=== PATIENT | male | born 2000 | race African-American/Black ===

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

== ENCOUNTER 2021-06-27 04:06 | Inpatient (IN) | payer OTHER, SELFPAY ==
[2021-06-27 04:45] LABS: Hemoglobin 11.6 g/dL (14.0-18.0); Mean Corpuscular HGB CONC 34.4 g/dL (32.0-36.0); Mean Corpuscular Hemoglobin 31.2 pg (25.0-35.0); Mean Corpuscular Volume 90.7 fL (78.0-98.0); Platelet Count 337 thou/uL (130-400); RBC Distribution Width 11.6 % (11.5-14.5); White Blood Cell (WBC) Count 23.4 thou/uL (4.8-10.8)
[2021-06-27 04:54] LABS: INR-International Normal Ratio 1.2; PTT 25.6 sec (22.9-36.1); Prothrombin Time 15.3 sec (12.0-14.7)
[2021-06-27 04:55] LABS: ALT (SGPT) 18 U/L (8-55); AST (SGOT) 21 U/L (5-34); Albumin 3.4 g/dL (3.5-5.0); Alkaline Phosphatase 46 U/L (50-130); Anion Gap 11 mmol/L (10-20); BUN (Urea Nitrogen) 17 mg/dL (8.9-20.6); Bilirubin, Total 0.4 mg/dL (0.2-1.2); CK (CPK) 477 U/L (30-200); Calc. Creatinine Clearance 0 mL/min (70-130); Calcium 8.2 mg/dL (7.8-10.44); Carbon Dioxide 21 mmol/L (22-29); Chloride 109 mmol/L (98-107); Globulin 2.4 g/dL (2.4-3.5); Glucose 152 mg/dL (70-105); Potassium 3.2 mmol/L (3.5-5.1); Protein, Total 5.8 g/dL (6.0-8.3); Sodium 138 mmol/L (136-145)
[2021-06-27] MEDS ORDERED: Boostrix 0.5 ML (Tdap) VIAL ONE ×2 (04:55→05:00)
[2021-06-27 05:01] LABS: Band 1 % (5-11); Eosinophils 1 % (0-10); Hypochromia SLIGHT = 6-15 cells (100X) (0-5/hpf); Lymphocytes 15 % (28-48); MDiff Complete? YES; Monocytes 1 % (0-4); Neutrophil 82 % (31-61); Platelet Morphology Comment Appears Adequate
[2021-06-27] MEDS ORDERED: Dextrose 5% in Water 1,000 ML IV PRN (05:03)
[2021-06-27] MEDS ORDERED: Ondansetron ODT 4 MG TAB PO PRN (05:03)
[2021-06-27] MEDS ORDERED: Dextrose 50% Abboject 50 ML SYRINGE SLOW IVP PRN (05:03)
[2021-06-27] MEDS ORDERED: traMADol HCl 50 MG TAB PO PRN (05:12)
[2021-06-27] MEDS ORDERED: Protamine Sulfate 50 MG/5 ML VIAL ONE (05:25)
[2021-06-27] MEDS ORDERED: Heparin 5,000 UNITS/ML VIAL ONE (05:25)
[2021-06-27 05:28] LABS: Alcohol Less than 10 mg/dL (Less than 10)
[2021-06-27 05:30] LABS: Salicylate Less than 8.0 mg/dL (15.0-30.0)
[2021-06-27 05:31] LABS: Acetaminophen Less than 6.0 mcg/mL (10.0-30.0)
[2021-06-27] MEDS ORDERED: Fentanyl 100 MCG/2 ML VIAL ONE ×2 (05:36→09:19)
[2021-06-27] MEDS ORDERED: Midazolam HCl 2 mg/2 ml Vial ONE (05:36)
[2021-06-27] MEDS ORDERED: Dexamethasone 4 mg/ml Vial ONE (05:39)
[2021-06-27] MEDS ORDERED: EPINEPHrine 1 MG/ML AMP ONE (05:39)
[2021-06-27] MEDS ORDERED: Bupivacaine 0.25% HCL 30 ML VIAL ONE (05:39)
[2021-06-27] MEDS ORDERED: Ondansetron PF 4 MG/2 ML Vial ONE (05:50)
[2021-06-27] MEDS ORDERED: Rocuronium Bromide 10 MG/ML (10ML VIAL) ONE (05:50)
[2021-06-27] MEDS ORDERED: Lidocaine 1% PF 5 ML VIAL ONE (05:50)
[2021-06-27] MEDS ORDERED: Calcium Chloride 1 GM/10 ML Abboject SYRINGE ONE (05:50)
[2021-06-27] MEDS ORDERED: Glycopyrrolate 0.2 MG/ML 5 ML SYRINGE ONE (05:50)
[2021-06-27] MEDS ORDERED: PHENYLEPHRINE-NS 100 MCG/ML 10 ML SYRINGE ONE (05:50)
[2021-06-27] MEDS ORDERED: Dexamethasone 20 MG/5 ML VIAL ONE (05:50)
[2021-06-27] MEDS ORDERED: Succinylcholine 200 MG/10 ml SYRINGE FS ONE (05:50)
[2021-06-27] MEDS ORDERED: PROPOFOL 200 MG/20 ML VIAL ONE (05:50)
[2021-06-27] MEDS ORDERED: Vecuronium 10 MG VIAL ONE (05:50)
[2021-06-27 05:59] LABS: Bilirubin Negative (Negative); Blood, Urine Negative (Negative); Clarity Clear (Clear); Glucose, Urine (Dipstick) Normal (Negative); Ketone, Urine Negative (Negative); Leukocyte Negative Leu/uL (Negative); Nitrite Negative (Negative); Protein, Urine (Dipstick) 20 mg/dL (Neg-Trace); Specific Gravity, Urine 1.035 (1.002-1.036); Urobilinogen Normal mg/dL (Less than 2); pH, Urine 6.5 (5.0-9.0)
[2021-06-27 06:08] LABS: Amphetamine Not Detected (NotDetected); Barbiturates Screen Not Detected (NotDetected); Benzodiazepine Screen Not Detected (NotDetected); Cocaine Metabolite Screen Not Detected (NotDetected); Methadone Not Detected (NotDetected); Methamphetamine Not Detected (NotDetected); Opiate Screen Not Detected (NotDetected); Oxycodone Screen Not Detected (NotDetected); Phencyclidine (PCP) Not Detected (NotDetected); THC/Cannabinoid Screen Detected (NotDetected); Tricyclic Screen Not Detected (NotDetected)
[2021-06-27] MEDS ORDERED: Phenylephrine 10 MG/ML VIAL ONE (06:08)
[2021-06-27] MEDS ORDERED: Albumin 5% 500 ML ONE (06:09)
[2021-06-27] MEDS ORDERED: Heparin 10,000 UNITS/ 10 ML VIAL ONE (06:48)
[2021-06-27] MEDS ORDERED: Potassium Phosphate 30 MMOL in Sodium Chloride 0.9% 500 ML IVPB SCH ×2 (07:45→11:45)
[2021-06-27] MEDS ORDERED: Neomycin-Polymyxin 1 ML AMP ONE (08:13)
[2021-06-27] MEDS ORDERED: Bacitracin Zinc Ointment 30 gm TUBE ONE (08:29)
[2021-06-27 10:37] LABS: SARS-CoV-2 NAA Rapid Test DETECTED (NotDetected)
[2021-06-27] MEDS: Sodium Chloride 0.9% 1,000 ML IV SCH ×2 (11:31→18:05)
[2021-06-27] MEDS: Acetaminophen 500 MG TAB PO SCH ×4 (11:31→23:19)
[2021-06-27] MEDS: Potassium Chloride 20 MEQ in Premix Bag 1 BAG IVPB SCH ×2 (11:32→11:33)
[2021-06-27] MEDS: Gabapentin 300 MG CAP PO SCH ×3 (11:32→21:05)
[2021-06-27] MEDS: Famotidine 20 MG TAB PO SCH ×2 (11:32→20:54)
[2021-06-27] MEDS: traMADol HCl 50 MG TAB PO SCH ×4 (11:32→23:20)
[2021-06-27] MEDS: Polyethylene Glycol 3350 17 GM Packet PO SCH (11:33)
[2021-06-27] MEDS: Senokot S 8.6-50 MG TAB PO SCH ×2 (11:33→20:54)
[2021-06-27] MEDS ORDERED: Cepastat Lozenges 1 LOZ PO PRN (12:33)
[2021-06-27 12:53] LABS: #Lymphocytes 1.3 thou/uL (1.20-3.40); #Monocytes 1.7 thou/uL (0.11-0.59); #Neutrophils 14.3 thou/uL (1.40-6.50); %Eosinophils 0.1 % (0.0-10.0); %Lymphocytes 7.3 % (28.0-48.0); %Monocytes 9.6 % (0.0-4.0); %Neutrophils 82.9 % (31.0-61.0); Hemoglobin 11.1 g/dL (14.0-18.0); Mean Corpuscular Hemoglobin 31.4 pg (25.0-35.0); Mean Corpuscular Volume 89.5 fL (78.0-98.0); Mean Platelet Volume 6.8 fL (7.4-10.4); Platelet Count 183 thou/uL (130-400); RBC Distribution Width 12.3 % (11.5-14.5); Red Blood Cell (RBC) Count 3.53 mill/uL (4.00-5.20); White Blood Cell (WBC) Count 17.2 thou/uL (4.8-10.8)
[2021-06-27] MEDS ORDERED: Potassium Chloride 10 MEQ in Dextrose 5 % And 0.9 % NaCl 1,000 ML IV SCH (15:30)
[2021-06-27] MEDS: Morphine 2 MG/ML VIAL SLOW IVP PRN ×2 (18:46→21:31)
[2021-06-27] MEDS: Potassium Chloride 10 MEQ in Dextrose 5 % And 0.9 % NaCl 1,000 ML IV SCH (18:47)
[2021-06-27 21:45] VITALS: BMI 25.9
[2021-06-28] MEDS: Morphine 2 MG/ML VIAL SLOW IVP PRN ×2 (00:40→05:05)
[2021-06-28] MEDS: Potassium Chloride 10 MEQ in Dextrose 5 % And 0.9 % NaCl 1,000 ML IV SCH (01:49)
[2021-06-28] MEDS: traMADol HCl 50 MG TAB PO SCH ×3 (05:05→17:53)
[2021-06-28] MEDS: Acetaminophen 500 MG TAB PO SCH ×2 (05:06→11:48)
[2021-06-28 06:27] LABS: Band 1 % (5-11); Eosinophils 1 % (0-10); Hemoglobin 8.7 g/dL (14.0-18.0); Lymphocytes 20 % (28-48); MDiff Complete? YES; Mean Corpuscular HGB CONC 33.6 g/dL (32.0-36.0); Mean Corpuscular Hemoglobin 30.3 pg (25.0-35.0); Mean Platelet Volume 6.4 fL (7.4-10.4); Monocytes 12 % (0-4); Neutrophil 66 % (31-61); Platelet Count 122 thou/uL (130-400); Platelet Morphology Comment Appears Adequate; RBC Distribution Width 12.2 % (11.5-14.5); Red Blood Cell (RBC) Count 2.86 mill/uL (4.00-5.20); White Blood Cell (WBC) Count 7.9 thou/uL (4.8-10.8)
[2021-06-28 06:30] LABS: Anion Gap 7 mmol/L (10-20); BUN (Urea Nitrogen) 8 mg/dL (8.9-20.6); CK (CPK) 787 U/L (30-200); Calc. Creatinine Clearance 157 mL/min (70-130); Calcium 8.3 mg/dL (7.8-10.44); Carbon Dioxide 26 mmol/L (22-29); Chloride 110 mmol/L (98-107); Glucose 110 mg/dL (70-105); Magnesium 1.6 mg/dL (1.7-2.2); Phosphorus 3.3 mg/dL (2.3-4.7); Potassium 3.6 mmol/L (3.5-5.1); Sodium 139 mmol/L (136-145)
[2021-06-28] MEDS ORDERED: Magnesium Sulfate 3 GM in Sodium Chloride 0.9% 100 ML IV SCH (07:30)
[2021-06-28] MEDS ORDERED: Potassium Phosphate 30 MMOL, Magnesium Sulfate 3 GM in Sodium Chloride 0.9% 250 ML 250 ML IVPB SCH (07:30)
[2021-06-28] MEDS: Aspirin 81 mg Enteric Coated Tablet PO SCH (08:48)
[2021-06-28] MEDS: Cholecalciferol (Vitamin D3) 400 UNITS TAB PO SCH (08:48)
[2021-06-28] MEDS: Famotidine 20 MG TAB PO SCH (08:48)
[2021-06-28] MEDS: Cyclobenzaprine 10 MG TAB PO PRN ×2 (08:48→20:22)
[2021-06-28] MEDS: Senokot S 8.6-50 MG TAB PO SCH ×2 (08:48→20:21)
[2021-06-28] MEDS: Polyethylene Glycol 3350 17 GM Packet PO SCH (08:48)
[2021-06-28] MEDS: Ibuprofen 800 MG TAB PO PRN (08:48)
[2021-06-28] MEDS: Zinc Sulfate 220 MG CAP PO SCH (08:48)
[2021-06-28] MEDS: Gabapentin 300 MG CAP PO SCH ×3 (08:48→20:22)
[2021-06-28] MEDS: Acetaminophen/Codeine 30-300mg Tablet PO SCH ×2 (15:06→20:22)
[2021-06-28] MEDS: Acetaminophen 325 MG TAB PO SCH (17:54)
[2021-06-29] MEDS: Acetaminophen 325 MG TAB PO SCH ×5 (00:17→23:23)
[2021-06-29] MEDS: traMADol HCl 50 MG TAB PO SCH ×5 (00:17→23:24)
[2021-06-29] MEDS: Ibuprofen 800 MG TAB PO PRN (00:31)
[2021-06-29] MEDS: Acetaminophen/Codeine 30-300mg Tablet PO SCH ×4 (03:02→20:45)
[2021-06-29 06:09] LABS: Hemoglobin 8.2 g/dL (14.0-18.0); Mean Corpuscular HGB CONC 34.7 g/dL (32.0-36.0); Mean Corpuscular Hemoglobin 31.6 pg (25.0-35.0); Mean Platelet Volume 7.1 fL (7.4-10.4); Platelet Count 113 thou/uL (130-400); Red Blood Cell (RBC) Count 2.59 mill/uL (4.00-5.20); White Blood Cell (WBC) Count 7.9 thou/uL (4.8-10.8)
[2021-06-29 06:10] LABS: Eosinophils 3 % (0-10); Hypochromia SLIGHT = 6-15 cells (100X) (0-5/hpf); Lymphocytes 24 % (28-48); MDiff Complete? YES; Monocytes 7 % (0-4); Neutrophil 66 % (31-61); Platelet Morphology Comment Appears Adequate
[2021-06-29] MEDS: Polyethylene Glycol 3350 17 GM Packet PO SCH (08:28)
[2021-06-29] MEDS: Aspirin 81 mg Enteric Coated Tablet PO SCH (08:28)
[2021-06-29] MEDS: Senokot S 8.6-50 MG TAB PO SCH ×2 (08:29→20:44)
[2021-06-29] MEDS: Zinc Sulfate 220 MG CAP PO SCH (08:29)
[2021-06-29] MEDS: Gabapentin 300 MG CAP PO SCH ×3 (08:29→20:45)
[2021-06-29] MEDS: Cholecalciferol (Vitamin D3) 400 UNITS TAB PO SCH (08:29)
[2021-06-29] MEDS ORDERED: Enoxaparin Sodium 40 MG/0.4 ML SYRINGE SC SCH ×2 (09:00→12:53)
[2021-06-29] MEDS: Ascorbic Acid 500 mg Chewable Tablet PO SCH ×2 (09:02→20:45)
[2021-06-29] MEDS: cloNIDine 0.1 MG TAB PO SCH ×3 (11:27→23:23)
[2021-06-29] MEDS: Ferrous Sulfate 325 MG TAB PO SCH (17:46)
[2021-06-29 18:34] LABS: SARS-CoV-2 PCR by NAA DETECTED (NotDetected)
[2021-06-30] MEDS: Cyclobenzaprine 10 MG TAB PO PRN (03:39)
[2021-06-30] MEDS: Acetaminophen/Codeine 30-300mg Tablet PO SCH ×4 (03:39→20:38)
[2021-06-30 04:14] LABS: Hemoglobin 7.8 g/dL (14.0-18.0)
[2021-06-30] MEDS: cloNIDine 0.1 MG TAB PO SCH ×3 (05:56→17:34)
[2021-06-30] MEDS: Acetaminophen 325 MG TAB PO SCH ×3 (05:56→17:34)
[2021-06-30] MEDS: traMADol HCl 50 MG TAB PO SCH ×3 (05:58→17:34)
[2021-06-30] MEDS: Senokot S 8.6-50 MG TAB PO SCH ×2 (09:22→20:38)
[2021-06-30] MEDS: Gabapentin 300 MG CAP PO SCH ×3 (09:22→20:39)
[2021-06-30] MEDS: Ascorbic Acid 500 mg Chewable Tablet PO SCH ×2 (09:23→20:38)
[2021-06-30] MEDS: Aspirin 81 mg Enteric Coated Tablet PO SCH (09:23)
[2021-06-30] MEDS: Cholecalciferol (Vitamin D3) 400 UNITS TAB PO SCH (09:23)
[2021-06-30] MEDS: Zinc Sulfate 220 MG CAP PO SCH (09:23)
[2021-06-30] MEDS: Ferrous Sulfate 325 MG TAB PO SCH ×3 (09:23→20:38)
[2021-06-30] MEDS: Polyethylene Glycol 3350 17 GM Packet PO SCH (09:23)
[2021-06-30] MEDS: Enoxaparin Sodium 40 MG/0.4 ML SYRINGE SC SCH (09:23)
[2021-06-30] MEDS ORDERED: Enoxaparin Sodium 40 MG/0.4 ML SYRINGE SC SCH (12:52)
[2021-06-30 15:37] LABS: SARS-CoV-2 IgG Ab Reactive (NonReactive)
[2021-07-01] MEDS: cloNIDine 0.1 MG TAB PO SCH ×3 (01:02→16:07)
[2021-07-01] MEDS: Acetaminophen 325 MG TAB PO SCH ×3 (01:02→11:59)
[2021-07-01] MEDS: traMADol HCl 50 MG TAB PO SCH ×3 (01:03→12:01)
[2021-07-01] MEDS: Acetaminophen/Codeine 30-300mg Tablet PO SCH ×3 (04:54→16:05)
[2021-07-01 08:15] LABS: Hemoglobin 7.9 g/dL (14.0-18.0)
[2021-07-01] MEDS: Enoxaparin Sodium 40 MG/0.4 ML SYRINGE SC SCH (09:27)
[2021-07-01] MEDS: Senokot S 8.6-50 MG TAB PO SCH (09:28)
[2021-07-01] MEDS: Polyethylene Glycol 3350 17 GM Packet PO SCH (09:28)
[2021-07-01] MEDS: Ascorbic Acid 500 mg Chewable Tablet PO SCH (09:28)
[2021-07-01] MEDS: Zinc Sulfate 220 MG CAP PO SCH (09:29)
[2021-07-01] MEDS: Ferrous Sulfate 325 MG TAB PO SCH (09:29)
[2021-07-01] MEDS: Cholecalciferol (Vitamin D3) 400 UNITS TAB PO SCH (09:29)
[2021-07-01] MEDS: Aspirin 81 mg Enteric Coated Tablet PO SCH (09:29)
[2021-07-01] MEDS: Gabapentin 300 MG CAP PO SCH ×2 (09:31→16:05)
[2021-07-01 11:48] VITALS: BP 114/65; TEMP 98.5
[2021-07-11 14:06] LABS: Actual Bicarbonate (HCO3a) 18.2 mEq/L (22-28); Analyzer IN Cardio OR; Base Excess (BEa) -7.3 mEq/L (-2.0 to +3.0); CO2 Tension 36.4 mmHg (35.0-45.0); Calcium, Ionized (arterial) 1.15 mmol/L (1.12-1.30); Carboxyhemoglobin (COHb) 0.6 gm% (0.0-3.0); Hemoglobin (Hb) 9.2 g/dL (11.4-15.4); O2 Tension (PaO2), arterial 278.7 mmHg (80.0-100.0); Potassium - ABG Lab 3.64 mmol/L (3.70-5.30); pH, Arterial 7.32 (7.35-7.45)
[2021-07-11 14:10] LABS: Actual Bicarbonate (HCO3a) 22.8 mEq/L (22-28); Analyzer IN Cardio OR; CO2 Tension 49.7 mmHg (35.0-45.0); Calcium, Ionized (arterial) 1.05 mmol/L (1.12-1.30); Carboxyhemoglobin (COHb) 1.4 gm% (0.0-3.0); Hemoglobin (Hb) 10.3 g/dL (11.4-15.4); pH, Arterial 7.28 (7.35-7.45)
[2021-07-11 14:11] LABS: Actual Bicarbonate (HCO3a) 21.1 mEq/L (22-28); Analyzer IN Cardio OR; Base Excess (BEa) -3.4 mEq/L (-2.0 to +3.0); CO2 Tension 35.8 mmHg (35.0-45.0); Calcium, Ionized (arterial) 1.16 mmol/L (1.12-1.30); Carboxyhemoglobin (COHb) 0.8 gm% (0.0-3.0); Hemoglobin (Hb) 11.1 g/dL (11.4-15.4); pH, Arterial 7.39 (7.35-7.45)
[2021-07-11 14:12] LABS: O2 Tension (PaO2), arterial 35.2 mmHg (80.0-100.0)
[2021-07-11 14:13] LABS: Puncture Site Arterial Line
[2021-07-11 14:13] LABS: Puncture Site Arterial Line
[2021-07-11 14:14] LABS: Puncture Site Arterial Line
== END 2021-07-01 16:38 | disposition home or self-care (01) | DRG 957 ==
LOC: ERS 04:06 → EEVIPCON 04:06 → SURG A 05:03 → CCU 10:42 → SURG A 15:56
PROVIDERS: ADMIT Surgery; ATTEND Surgery
PROC: 041L09L Bypass Left Femoral Artery to Popliteal Artery with Autologous Venous Tissue, Open Approach (ICD-10-PCS; principal; 2021-06-27)
PROC: 06BP0ZZ Excision of Right Saphenous Vein, Open Approach (ICD-10-PCS; 2021-06-27)
PROC: 0PSP04Z Reposition Right Metacarpal with Internal Fixation Device, Open Approach (ICD-10-PCS; 2021-06-27)
PROC: 01Q50ZZ Repair Median Nerve, Open Approach (ICD-10-PCS; 2021-06-27)
PROC: 0LQ70ZZ Repair Right Hand Tendon, Open Approach (ICD-10-PCS; 2021-06-27)
PROC: 0JDJ0ZZ Extraction of Right Hand Subcutaneous Tissue and Fascia, Open Approach (ICD-10-PCS; 2021-06-27)
PROC: 02HV33Z Insertion of Infusion Device into Superior Vena Cava, Percutaneous Approach (ICD-10-PCS; 2021-06-27)
PROC: 03HY32Z Insertion of Monitoring Device into Upper Artery, Percutaneous Approach (ICD-10-PCS; 2021-06-27)
PROC: 30233N1 Transfusion of Nonautologous Red Blood Cells into Peripheral Vein, Percutaneous Approach (ICD-10-PCS; 2021-06-27)
PROC: 8E0ZXY6 Isolation (ICD-10-PCS; 2021-06-27)
DX: S75.012A Minor laceration of femoral artery, left leg, initial encounter (principal); U07.1 COVID-19; S64.11XA Injury of median nerve at wrist and hand level of right arm, initial encounter; S62.316B Displaced fracture of base of fifth metacarpal bone, right hand, initial encounter for open fracture; S66.122A Laceration of flexor muscle, fascia and tendon of right middle finger at wrist and hand level, initial encounter; D62 Acute posthemorrhagic anemia; Z23 Encounter for immunization; I72.4 Aneurysm of artery of lower extremity; D57.1 Sickle-cell disease without crisis; J30.2 Other seasonal allergic rhinitis; G89.11 Acute pain due to trauma; F12.10 Cannabis abuse, uncomplicated; E87.6 Hypokalemia; E83.42 Hypomagnesemia; W32.0XXA Accidental handgun discharge, initial encounter; Z79.899 Other long term (current) drug therapy; T79.6XXA Traumatic ischemia of muscle, initial encounter
CPT/HCPCS: 0240U; 36415; 71045; 75635; 76000; 80048; 80306; 80307; 81003; 82550; 82805; 83735; 84100; 85014; 85018; 85025; 86769; 86850; 86900; 86901; 90471; 90715; 94760; 96365; C1751; G0390; J0171; J0690; J1100; J1644; J1650; J2250; J2270; J2370; J2405; J2704; J2720; J3010; J3475; J3480; J7030; J7042; J7050; P9016; P9045; S0020; U0003; U0005

== ENCOUNTER 2021-07-25 10:06 | Inpatient (IN) | payer OTHER ==
[2021-07-25] MEDS ORDERED: Fentanyl 100 MCG/2 ML VIAL ONE ×6 (12:11→21:24)
[2021-07-25] MEDS ORDERED: Midazolam HCl 2 mg/2 ml Vial ONE (12:44)
[2021-07-25] MEDS ORDERED: Dexmedetomidine 200 MCG/2 ML VIAL ONE (13:59)
[2021-07-25] MEDS ORDERED: Neomycin-Polymyxin 1 ML AMP ONE (14:16)
[2021-07-25] MEDS ORDERED: Bupivacaine PF 0.5% 30 ML VIAL ONE ×3 (14:16→16:47)
[2021-07-25] MEDS ORDERED: Bacitracin Zinc Ointment 30 gm TUBE ONE (14:16)
[2021-07-25] MEDS ORDERED: Lidocaine 1% PF 5 ML VIAL ONE (14:35)
[2021-07-25] MEDS ORDERED: ePHEDrine 50 MG/ML VIAL ONE (14:35)
[2021-07-25] MEDS ORDERED: PROPOFOL 200 MG/20 ML VIAL ONE (14:35)
[2021-07-25] MEDS ORDERED: PHENYLEPHRINE-NS 100 MCG/ML 10 ML SYRINGE ONE (14:35)
[2021-07-25] MEDS ORDERED: Ondansetron PF 4 MG/2 ML Vial ONE (14:35)
[2021-07-25] MEDS ORDERED: Rocuronium Bromide 10 MG/ML (10ML VIAL) ONE (14:35)
[2021-07-25] MEDS ORDERED: Dexamethasone 20 MG/5 ML VIAL ONE (14:35)
[2021-07-25] MEDS ORDERED: Lidocaine 2% w/Epinephrine 1:200K 20 ML VIAL ONE (15:41)
[2021-07-25] MEDS ORDERED: Thrombin 5000 UNITS/5 ML VIAL ONE (16:59)
[2021-07-25] MEDS ORDERED: HYDROmorphone 0.5 MG/0.5 ML SYRINGE ONE ×2 (19:01→21:04)
[2021-07-25] MEDS ORDERED: Meperidine HCl/PF 25 MG/ML VIAL SLOW IVP PRN (20:35)
[2021-07-25] MEDS ORDERED: Ondansetron HCl/PF 4 MG/2 ML Vial IVP PRN (20:35)
[2021-07-25] MEDS ORDERED: HYDROmorphone 2 MG/ML VIAL SLOW IVP PRN (20:35)
[2021-07-25] MEDS ORDERED: Promethazine HCl 25 MG/ML VIAL IM PRN ×2 (20:35→20:40)
[2021-07-25] MEDS ORDERED: Morphine Sulfate 2 MG/ML SYRINGE SLOW IVP PRN (20:35)
[2021-07-25] MEDS ORDERED: Ketorolac Tromethamine 30 MG/ML VIAL IVP PRN (20:35)
[2021-07-25] MEDS ORDERED: PACU-Morphine 4MG/ML VIAL SLOW IVP PRN (20:35)
[2021-07-25] MEDS ORDERED: Promethazine HCl 25 MG/ML VIAL IVPB PRN (20:35)
[2021-07-25] MEDS ORDERED: Acetaminophen 325 MG TAB PO PRN (20:40)
[2021-07-25] MEDS ORDERED: Fentanyl 100 MCG/2 ML VIAL SLOW IVP PRN (20:40)
[2021-07-25] MEDS ORDERED: Milk Of Magnesia 30 ML UDCUP PO PRN (20:40)
[2021-07-25] MEDS ORDERED: Bisacodyl 10 MG SUPP PR PRN (20:40)
[2021-07-25] MEDS ORDERED: Meperidine HCl/PF 25 MG/ML VIAL IM PRN (20:44)
[2021-07-25] MEDS ORDERED: Communication Order-Pharmacy FS SCH (20:45)
[2021-07-25] MEDS ORDERED: Ketorolac Tromethamine 30 MG/ML VIAL ONE (20:47)
[2021-07-25] MEDS ORDERED: TETANUS AND DIPHTHERIA TOX/PF 0.5 ML DISP.SYRIN IM SCH (21:00)
[2021-07-25] MEDS ORDERED: Bupivacaine 0.5% 10 ML VIAL ONE (21:28)
[2021-07-25] MEDS: Vancomycin 1.5 GRAM/300 ML BAG 1.5 GM in Premix Bag 1 BAG IVPB SCH (22:41)
[2021-07-25] MEDS: Sodium Chloride 0.9% 1,000 ML IV SCH (22:42)
[2021-07-25] MEDS: Aspirin 81 mg Enteric Coated Tablet PO SCH (22:42)
[2021-07-25 22:45] VITALS: BMI 28.5
[2021-07-26] MEDS: HYDROcodone/Acetaminophen 5/325 mg Tablet PO PRN ×3 (02:19→15:23)
[2021-07-26] MEDS: Vancomycin 1.5 GRAM/300 ML BAG 1.5 GM in Premix Bag 1 BAG IVPB SCH ×2 (05:37→14:00)
[2021-07-26] MEDS: Morphine 4 MG/ML VIAL SLOW IVP PRN ×3 (05:37→18:34)
[2021-07-26] MEDS: Sodium Chloride 0.9% 1,000 ML IV SCH ×2 (06:38→18:38)
[2021-07-26] MEDS: Aspirin 81 mg Enteric Coated Tablet PO SCH ×2 (09:03→22:11)
[2021-07-26] MEDS: Ondansetron PF 4 MG/2 ML Vial SLOW IVP PRN ×2 (12:35→18:40)
[2021-07-26] MEDS: traMADol HCl 50 MG TAB PO PRN (12:41)
[2021-07-26] MEDS ORDERED: Ketorolac Tromethamine 30 MG/ML VIAL IVP SCH (18:15)
[2021-07-26] MEDS ORDERED: Promethazine HCl 25 MG/ML VIAL IM PRN (18:17)
[2021-07-26] MEDS ORDERED: Meperidine HCl/PF 25 MG/ML VIAL IM PRN (18:17)
[2021-07-26] MEDS: Ketorolac Tromethamine 30 MG/ML VIAL IM SCH ×2 (18:33→18:36)
[2021-07-26] MEDS: Amitriptyline HCl 25 MG TAB PO SCH (22:11)
[2021-07-26] MEDS: Gabapentin 300 MG CAP PO SCH (22:12)
[2021-07-26] MEDS: VANCOMYCIN 1.25 GM/250 ML BAG 1.25 GM in Premix Bag 1 BAG IVPB SCH (22:36)
[2021-07-27] MEDS: Ketorolac Tromethamine 30 MG/ML VIAL IVP SCH ×4 (00:56→17:19)
[2021-07-27] MEDS: VANCOMYCIN 1.25 GM/250 ML BAG 1.25 GM in Premix Bag 1 BAG IVPB SCH ×2 (05:26→13:55)
[2021-07-27] MEDS: Sodium Chloride 0.9% 1,000 ML IV SCH (05:27)
[2021-07-27] MEDS: Gabapentin 300 MG CAP PO SCH ×3 (08:32→20:11)
[2021-07-27] MEDS: Aspirin 81 mg Enteric Coated Tablet PO SCH ×2 (08:33→20:11)
[2021-07-27] MEDS: traMADol HCl 50 MG TAB PO PRN (10:06)
[2021-07-27 19:53] VITALS: BP 128/77; TEMP 98.6
[2021-07-27] MEDS: HYDROcodone/Acetaminophen 5/325 mg Tablet PO PRN (20:09)
[2021-07-27] MEDS: Amitriptyline HCl 25 MG TAB PO SCH (20:11)
[2021-07-27 21:37] LABS: Calc. Creatinine Clearance 200 mL/min (70-130)
== END 2021-07-27 21:00 | disposition home or self-care (01) | DRG 514 ==
LOC: SDC 10:06 → SURG A 20:45
PROVIDERS: ADMIT Orthopaedic Surgery Hand Surgery; ATTEND Orthopaedic Surgery Hand Surgery
PROC: 0PSQ04Z Reposition Left Metacarpal with Internal Fixation Device, Open Approach (ICD-10-PCS; principal; 2021-07-25)
PROC: 0PU Upper Bones, Supplement (ICD-10-PCS; 2021-07-25)
PROC: 0QB30ZZ Excision of Left Pelvic Bone, Open Approach (ICD-10-PCS; 2021-07-25)
DX: S62.307A Unspecified fracture of fifth metacarpal bone, left hand, initial encounter for closed fracture (principal); S61.432A Puncture wound without foreign body of left hand, initial encounter; W34.00XA Accidental discharge from unspecified firearms or gun, initial encounter; D64.9 Anemia, unspecified; J30.2 Other seasonal allergic rhinitis; F12.90 Cannabis use, unspecified, uncomplicated; Z79.899 Other long term (current) drug therapy
CPT/HCPCS: 36415; 76000; 80202; 82565; C1713; J0690; J1100; J1170; J1885; J2250; J2270; J2405; J2704; J3010; J3370; J3490; J7050; S0020

== ENCOUNTER 2022-01-11 14:59 | Outpatient (CLI) | payer BC, OTHER ==
[2022-01-11 17:33] LABS: Hemoglobin 14.4 g/dL (13.5-17.5); Mean Corpuscular HGB CONC 33.9 g/dL (32.0-36.0); Mean Corpuscular Hemoglobin 29.6 pg (27.0-33.0); Mean Corpuscular Volume 87.4 fl (81.2-95.1); Mean Platelet Volume 9.3 fl (7.4-10.4); Platelet Count 254 10x3/uL (150-450); RBC Distribution Width 13.2 % (11.5-14.5); Red Blood Cell (RBC) Count 4.86 10x6/uL (4.32-5.72); White Blood Cell (WBC) Count 6.4 10x3/uL (3.5-10.5)
[2022-01-12 08:33] LABS: SARS-CoV-2 PCR by NAA Not Detected (NotDetected)
== END 2022-01-11 15:00 | disposition home or self-care (01) ==
LOC: LABBT 14:59
PROVIDERS: ATTEND Orthopaedic Surgery Hand Surgery
DX: Z01.812 Encounter for preprocedural laboratory examination (principal); T84.84XA Pain due to internal orthopedic prosthetic devices, implants and grafts, initial encounter; S61.432A Puncture wound without foreign body of left hand, initial encounter; Z20.822 Contact with and (suspected) exposure to COVID-19
CPT/HCPCS: 85027; U0003; U0005